=== PATIENT | female | born 1995 | race Asian ===

== ENCOUNTER 2017-07-31 20:01 | Emergency (ER) | payer OTHER ==
[~2017-07-31] VITALS: Ht 157.5 cm; Wt 60.8 kg
[2017-07-31 20:11] VITALS: Ht 157.5 cm; Wt 60.8 kg
[2017-07-31 22:20] VITALS: BP 113/78
== END 2017-07-31 22:44 | disposition home or self-care (01) ==
LOC: ED 20:01
DX: B34.9 Viral infection, unspecified (principal)
CPT/HCPCS: 87804; Q0162